=== PATIENT | female | born 1990 | race Hispanic/Latino ===

== ENCOUNTER 2018-06-18 10:21 | Inpatient (IN) | payer OTHER ==
[2018-06-18 10:51] VITALS: BMI 23.6
[2018-06-18 11:18] LABS: Amnisure Test RUPTURE DETECTED (No Rupture)
[2018-06-18 11:19] LABS: Amnisure Internal Control QC ACCEPTABLE (ACCEPTABLE)
[2018-06-18] MEDS ORDERED: Betamet Acet/Betamet Na Ph 30 MG/5 ML VIAL ONE (11:54)
[2018-06-18] MEDS: Betamet Acet/Betamet Na Ph 30 MG/5 ML VIAL IM SCH (11:59)
[2018-06-18] MEDS ORDERED: Zolpidem Tartrate 5 MG TAB PO PRN (12:34)
[2018-06-18] MEDS ORDERED: Docusate 100 MG CAP PO PRN (12:34)
[2018-06-18] MEDS ORDERED: Promethazine HCl 25 MG/ML VIAL IM PRN (12:34)
[2018-06-18] MEDS ORDERED: Ondansetron PF 4 MG/2 ML Vial IVP PRN (12:34)
--- NOTE | 2018-06-18 12:45 | PDOC.LDHP ---
Labor and Delivery H&P HPI: 27 y/o at 30 wks and 0/7 days presents for c/o loss of fluid per vagina since earlier this morning. Amniosure test (+). Bedside Ultrasound ordered. Heart Tones category 1. BMZ x1 dose given (first of 2). Latency antibiotics ordered (Zithromax/Ampicillin). Patient has SCDs ordered, bed rest, reg diet, GBS GC/Chlam cultures ordered. Current gestational age (weeks): 30 Grav: 4 Para: 2 Current complications: none Abnormal US findings: No Current medications: pre-osmani vitamins Allergies/Adverse Reactions: Allergies Allergy/AdvReac Type Severity Reaction Status Date / Time No Known Allergies Allergy Verified 06/18/18 10:50 Social history: none - Physical Exam Vital signs reviewed and normal: yes General: NAD, resting Heart: RRR Lungs: nonlabored breathing Abdomen: gravid Extremeties: no edema FHT: category 1 - Assessment L&D Assessment: premature rupture of membranes - Plan Plan: admit to L&D, other (PPROM protocol orders.)
[2018-06-18] MEDS: Lactated Ringer's 1,000 ML IV SCH ×2 (13:00→23:11)
[2018-06-18 13:54] LABS: Mean Corpuscular HGB CONC 34.1 g/dL (32.0-36.0); Mean Corpuscular Hemoglobin 30.3 pg (27.0-31.0); Mean Corpuscular Volume 88.7 fL (78.0-98.0); Mean Platelet Volume 10.6 fL (7.4-10.4); Platelet Count 134 thou/uL (130-400); RBC Distribution Width 12.5 % (11.5-14.5); White Blood Cell (WBC) Count 9.9 thou/uL (4.8-10.8)
[2018-06-18 14:34] LABS: HBSAg Index 0.27 S/CO (0-0.99); Hep B Surf Ag Non-Reactive S/CO (NonReactive)
[2018-06-18] MEDS: Ampicillin 2 GM in Sodium Chloride 0.9% 100 ML IVPB SCH ×2 (15:00→19:58)
--- NOTE | 2018-06-18 15:18 | ULT ---
OB ULTRASOUND: HISTORY: Premature rupture of membranes. FINDINGS: A single live intrauterine gestation is seen with measurements corresponding to an estimated gestatio nal age of 30 weeks 1 day and LOIS at 08/26/2018. The estimated weight measures 1510 gm or 3 carlee nds 5 ounces. measurements are as follows: BPD 7.50 cm, 30 weeks 1 day HC 27.46 cm, 30 weeks 0 days AC 25.95 cm, 30 weeks 1 day FL 5.75 cm, 30 weeks 1 day heart rate measures 122 b.p.m. Placenta is anteriorly located without evidence of placenta pre via. JEAN-CLAUDE is 13.9 cm. A 3-vessel cord, cord insertion, kidneys, bladder, stomach, 4-chamber heart, spine, lips/nose, upper and lower extremities are visualized without definite anomalies. The intracranial contents are not satisfactorily seen. IMPRESSION: 1. Single live intrauterine of 30 weeks 1 day, estimated gestational age and estimated nilson e of delivery at 08/26/2018. 2. Amniotic fluid index is 13.9 cm. POS: [facility]
[2018-06-18] MEDS: Azithromycin 500 MG in Sodium Chloride 0.9% 250 ML 250 ML IVPB SCH (16:09)
[2018-06-18 16:56] LABS: Syphilis Antibody Nonreactive (Nonreactive); Syphilis Antibody Index 0.03 S/CO (<1.00 Non-Reactive)
[2018-06-18] MEDS ORDERED: AMPicillin 2,000 MG in Syringe 0 ML SLOW IVP SCH (18:00)
[2018-06-19] MEDS: Ampicillin 2 GM in Sodium Chloride 0.9% 100 ML IVPB SCH ×4 (01:39→20:10)
[2018-06-19] MEDS: Lactated Ringer's 1,000 ML IV SCH ×3 (08:11→21:53)
[2018-06-19] MEDS: Betamet Acet/Betamet Na Ph 30 MG/5 ML VIAL IM SCH (12:01)
--- NOTE | 2018-06-19 12:56 | PDOC.LDPN ---
Labor & Delivery Progress Note - Subjective Subjective: comfortable - Objective Vital signs reviewed and normal: yes General: NAD, resting Uterine fundus: non tender FHT: category 1 AROM: clear fluid Plan: continue plan of care (We will continue 48 hours of IV antibiotics, followed by 5 more days of PO antibiotics. BMZ x 2 doses given. Magnesium Sulfate protocol for neuroprotection has been discussed, and we are currently hodling off as mother/fetus are stable and and delivery is not iminent.)
[2018-06-19] MEDS: Azithromycin 500 MG in Sodium Chloride 0.9% 250 ML 250 ML IVPB SCH (16:04)
[2018-06-20] MEDS: Ampicillin 2 GM in Sodium Chloride 0.9% 100 ML IVPB SCH ×2 (01:45→08:39)
[2018-06-20] MEDS: Lactated Ringer's 1,000 ML IV SCH ×2 (05:10→21:03)
--- NOTE | 2018-06-20 13:06 | PDOC.EVN ---
Event Note - Event Note Event Note: I was asked to evaluate Ms Ibarra for possible transfer to the floor. Pt denies abdominal pain/uterine contractions, vaginal bleeding, leaking of fluid. We reviewed her initial presentation of intermittent loss of fluid. We reviewed mode of diagosis, amnisure swab, us at time of diagnosis had jean-claude of >13cm. vital signs today normal and reviewed Physical exam. Abdomen soft NTTP : +pooling on speculum exam. visibly closed. SVE not performed BSUS: baby back down transverse, CL: 3cm no beaking or funneling, JEA-NCLAUDE >12cm. repeat amnisure test and VP3 pending. FHT 130s with mod ltv +accelerations. Isolated decelerations that do not appear to impact the following portions of the tracing. More recent attempts ot trace the baby have been less than adequate. A/P 27yo female with clear evidence of ROM ie +amnisure, +pooling. However with lie, normal fluid levels and closed long cervix pt is at lower risk for acute abruption or cord prolapse than if she had different set of circumstances. 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 I have shared this information with Dr Roman, her primary OB. I have asked that before she is transferred that a clear tracing be obtained for evaluation.
[2018-06-20 13:13] LABS: Amnisure Internal Control QC ACCEPTABLE (ACCEPTABLE); Amnisure Test RUPTURE DETECTED (No Rupture)
[2018-06-20] MEDS ORDERED: AMOXicillin 250 MG CAP PO SCH (14:00)
[2018-06-20 16:45] LABS: Chlamydia by PCR Not Detected (NotDetected); GC by PCR Not Detected (NotDetected)
[2018-06-20] MEDS: Azithromycin 250 MG TAB PO SCH (18:02)
--- NOTE | 2018-06-20 20:03 | PDOC.LDPN ---
Labor & Delivery Progress Note - Subjective Subjective: comfortable - Objective Vital signs reviewed and normal: yes General: NAD, resting Uterine fundus: tender to palpation FHT: category 1 AROM: clear fluid IUPC placed: yes FSE placed: yes Plan: continue plan of care -: 27 y/o at 30 and 2/7 weeks, s/p BMX x 2, now on ABX day 3. Doing well. Transferred to Post- floor, BPP tomorrow, NST daily. No signs of intrauterine infection, abruption, or labor.
[2018-06-20] MEDS: AMOXicillin 250 MG CAP PO SCH (21:03)
--- NOTE | 2018-06-21 10:06 | ULT ---
BIOPHYSICAL PROFILE: 06/21/2018 HISTORY: Premature rupture of membranes. COMPARISON: None. TECHNIQUE: Multiplanar lynn-scale sonographic imaging of the gravid uterus is performed for assessment of biophy sical profile. FINDINGS: A single intrauterine gestation is present, demonstrating a vertex presentation. The placenta is loc ated anteriorly, demonstrating no evidence for placenta previa or abruption. heart rate is 128 beats per minute. Amniotic fluid index is 11.7 cm. The performing beam machine operator reports a 2/2 score for tone, breathing, movements, and amniotic fluid. IMPRESSION: Normal 8/8 biophysical profile. POS: [facility]
[2018-06-21] MEDS: AMOXicillin 250 MG CAP PO SCH ×3 (11:23→21:00)
[2018-06-21] MEDS: Azithromycin 250 MG TAB PO SCH (16:22)
[2018-06-21] MEDS: Acetaminophen 500 MG TAB PO PRN (17:27)
--- NOTE | 2018-06-21 20:26 | PDOC.LDPN ---
Labor & Delivery Progress Note - Subjective Subjective: comfortable - Objective Vital signs reviewed and normal: yes General: NAD, resting Uterine fundus: non tender FHT: category 1 AROM: clear fluid Plan: continue plan of care (27 y/o at 30 and 3/7 weeks, s/p BMX x 2, now on ABX day 4. Doing well. now on Post- floor, BPP today was 8/8, NST daily. No signs of intrauterine infection, abruption, or labor.)
[2018-06-22] MEDS: AMOXicillin 250 MG CAP PO SCH ×3 (08:38→21:04)
[2018-06-22] MEDS: Acetaminophen 500 MG TAB PO PRN (09:30)
[2018-06-22] MEDS: Azithromycin 250 MG TAB PO SCH (16:26)
--- NOTE | 2018-06-22 17:36 | PDOC.LDPN ---
Labor & Delivery Progress Note - Subjective Subjective: comfortable (Continue plan of care: 27 y/o at 30 and 4/7 weeks, s/p BMZ x 2, now on ABX day 5 of 7 for latency. Doing well, now on Post- floor, BPP today was 8/8 yesterday, NST daily. No signs of intrauterine infection, abruption, or labor.) - Objective Vital signs reviewed and normal: yes General: NAD, resting Uterine fundus: non tender FHT: category 1 AROM: clear fluid Plan: continue plan of care
[2018-06-23] MEDS: AMOXicillin 250 MG CAP PO SCH ×3 (09:19→23:16)
[2018-06-23] MEDS: Azithromycin 250 MG TAB PO SCH (16:01)
--- NOTE | 2018-06-23 21:05 | PDOC.LDPN ---
Labor & Delivery Progress Note - Subjective Subjective: comfortable - Objective Vital signs reviewed and normal: yes General: NAD, resting Uterine fundus: non tender FHT: category 1 AROM: clear fluid Plan: continue plan of care -: Continue plan of care: 27 y/o at 30 and 5/7 weeks, s/p BMZ x 2, now on ABX day 6 of 7 for latency. Doing well, now on Post- floor, last BPP was 8 /8 and Vertex, NST daily. No signs of intrauterine infection, abruption, or labor.
[2018-06-24] MEDS: AMOXicillin 250 MG CAP PO SCH ×3 (09:37→22:05)
--- NOTE | 2018-06-24 12:25 | PDOC.LDPN ---
Labor & Delivery Progress Note - Subjective Subjective: comfortable - Objective Vital signs reviewed and normal: yes General: NAD, resting Uterine fundus: non tender FHT: category 1 AROM: clear fluid Plan: continue plan of care (Continue plan of care: 27 y/o at 30 and 5/ 7 weeks, s/p BMZ x 2, now on ABX day 7 of 7 for latency. Doing well, now on Post - floor, last BPP was 8/8 - next BPP for tomorrow, and Vertex, NST daily. No signs of intrauterine infection, abruption, or labor.)
[2018-06-24] MEDS: Azithromycin 250 MG TAB PO SCH (16:12)
[2018-06-24] MEDS: Lactated Ringer's 1,000 ML IV SCH (16:21)
[2018-06-25] MEDS: AMOXicillin 250 MG CAP PO SCH (09:30)
--- NOTE | 2018-06-25 10:28 | ULT ---
ULTRASOUND BIOPHYSICAL PROFILE: HISTORY: IUP at 31 weeks. Premature ruptured membranes. COMPARISON: 06/21/2018. FINDINGS: A single viable intrauterine fetus is noted in breech presentation. Anterior placenta. Amniotic flu id index 15.2 cm. heart rate 160 b.p.m. Biophysical profile score=8/8 normal. IMPRESSION: Normal biophysical profile score 8/8. Breech presentation. Anterior placenta. Normal amnioti c fluid. POS: [facility]
[2018-06-25] MEDS: Azithromycin 250 MG TAB PO SCH (15:35)
[2018-06-25] MEDS: Acetaminophen 500 MG TAB PO PRN (17:35)
--- NOTE | 2018-06-25 21:53 | PDOC.LDPN ---
Labor & Delivery Progress Note - Subjective Subjective: comfortable - Objective Vital signs reviewed and normal: yes General: NAD, resting FHT: category 1 AROM: clear fluid Plan: continue plan of care -: 11/08 BPP today. 31 wks 0 days, with PPROM x 7 days, BMZ x 2 in, ABX x 7 days
--- NOTE | 2018-06-26 19:47 | PDOC.LDPN ---
Labor & Delivery Progress Note - Subjective Subjective: comfortable - Objective Vital signs reviewed and normal: yes General: NAD, resting Uterine fundus: non tender FHT: category 1 AROM: clear fluid Plan: continue plan of care (11/08 BPP on 06/25/18. EGA of 31 wks 1 days, with PPROM x 8 days, BMZ x 2 in, ABX x 7 days completed. Stable, NST q shift. BPP twice weekly. Unstable lie.)
--- NOTE | 2018-06-27 12:53 | PDOC.LDPN ---
Labor & Delivery Progress Note - Subjective Subjective: comfortable - Objective Vital signs reviewed and normal: yes General: NAD, resting Uterine fundus: non tender FHT: category 1 AROM: clear fluid Plan: continue plan of care (continue plan of care (11/08 BPP on 06/25/18. EGA of 31 wks 1 days, with PPROM x 9 days, BMZ x 2 in, ABX x 7 days completed. Stable, NST q shift. BPP twice weekly. Unstable lie. Next BPP tomorrow.))
[2018-06-27] MEDS: Acetaminophen 500 MG TAB PO PRN (17:29)
--- NOTE | 2018-06-28 09:59 | ULT ---
BIOPHYSICAL PROFILE: Date: 06/28/18 HISTORY: premature rupture membranes FINDINGS/IMPRESSION: Tone: 2 Breathin Movement: 2 Amniotic Fluid: 2 Total Score: 8/8 Position: Vertex. Placenta: Anterior. Amniotic Fluid: Adequate. JEAN-CLAUDE recorded at 16 cm. Heart Rate: 160 beats/minute. POS: [facility]
--- NOTE | 2018-06-28 21:24 | PDOC.LDPN ---
Labor & Delivery Progress Note - Subjective Subjective: comfortable - Objective Vital signs reviewed and normal: yes General: NAD Uterine fundus: non tender FHT: category 1 AROM: clear fluid Plan: continue plan of care (continue plan of care, 11/08 BPP on 06/25/18. EGA of 31 wks and 3 days, with PPROM since 30 weeks and 0 days, BMZ x 2 in, ABX x 7 days completed. Stable, NST q shift. BPP twice weekly. Unstable lie.)
--- NOTE | 2018-06-29 15:26 | PDOC.LDPN ---
Labor & Delivery Progress Note - Subjective Subjective: comfortable - Objective Vital signs reviewed and normal: yes General: NAD, resting Uterine fundus: non tender FHT: category 1 AROM: clear fluid Plan: continue plan of care (continue plan of care: 11/08 BPP on 06/25/18. EGA of 31 wks and 4 days, with PPROM since 30 weeks and 0 days, BMZ x 2 in, ABX x 7 days completed. Stable, NST q shift. BPP twice weekly. Unstable lie, but VX on last BPP.)
--- NOTE | 2018-06-30 16:34 | PDOC.LDPN ---
Labor & Delivery Progress Note - Objective Vital signs reviewed and normal: yes General: NAD, resting Uterine fundus: non tender FHT: category 1 AROM: clear fluid Plan: continue plan of care (continue plan of care: 11/08 BPP on 06/25/18. EGA of 31 wks and 4 days, with PPROM since 30 weeks and 0 days, BMZ x 2 in, ABX x 7 days completed. Stable, NST q shift. BPP twice weekly. Unstable lie, but VX on last BPP. Delivery planned at 34 weeks.)
--- NOTE | 2018-07-01 04:35 | PDOC.OBAPN ---
FMR OB AP PN: Sub - Interval History Hospital Day: 13 Chief Complaint: LOF Indentification: 27 y/o @ 31.6 WGA here with PPROM since 30.0 WGA Interval History: Doing well, continues to leak. Denies VB, ctx. +FM FMR OB AP PN: Obj - Maternal Vital signs: BP: 109/59 HR: 75 RR: 18 Tmax: 97.9 - Heart Tones Baseline: 135 Variability: moderate Acceleration: present Deceleration: variable (single variable decel with rapid return to baseline) FMR OB AP PN: Exam - Physical Exam General: NAD, awake, alert and oriented HEENT: normocephalic and atraumatic, EOMI, MMM, conjunctiva clear, no scleral icterus, grossly normal vision, grossly normal hearing Neck: supple, no LAD Heart: RRR, normal S1/S2, no murmurs/rubs/gallops, pulses present, no edema General: CTAB, no respiratory distress, good air movement, no rales/rhonchi, no wheezing Abdomen: soft, gravid, non-tender, bowel sound present Musculoskeletal: FROM in all four extremities Neurological: cranial nerves II through XII intact, no focal deficit Skin: good tugor, capillary refill <2 seconds Lymphatic: no unusual bruising or bleeding, no purpura Psychiatric: intact recent and remote memory, good judgement and insight FMR OB AP PN: A/P - Problem List (1) premature rupture of membranes Current Visit: Yes Status: Acute Code(s): O42.919 - PRETRM ANETA ROM, UNSP TIME BETW RUPT AND ONST LABR, UNSP TRI Assessment and Plan: PPROM at 30.0 WGA, now 31.6 WGA s/p betamethasone x2 s/p 7 days of abx GBS negative BPP on 06/28/18 was 8/8 with JEAN-CLAUDE 16, vertex. -Continue qshift NST's -biweekly BPP's -Plan for delivery at 34 weeks Disposition: Continue plan of care with plan to deliver at 34 weeks. Discussion: Date/Time: 07/01/18 0435 This H&P was discussed with Dr. Ellington who agrees with the above documentation and plan. Signature: Bianca Garcia MD, PGY-2
--- NOTE | 2018-07-01 13:05 | PDOC.LDPN ---
Labor & Delivery Progress Note - Subjective Subjective: comfortable - Objective Vital signs reviewed and normal: yes General: NAD, resting, breathing through contractions, other Uterine fundus: non tender FHT: category 1 AROM: clear fluid Plan: continue plan of care (EGA of 31 wks and 6 days, with PPROM since 30 weeks and 0 days, BMZ x 2 in, ABX x 7 days completed. Stable, NST q shift. BPP twice weekly. Unstable lie, but VX on last BPP. Delivery planned at 34 weeks.)
--- NOTE | 2018-07-02 10:48 | ULT ---
BIOPHYSICAL PROFILE: DATE: 07/02/2018. COMPARISON: 06/28/2018. HISTORY: Premature rupture of membranes at 31 weeks gestation. TECHNIQUE: Multiplanar, ylnn scale sonographic imaging of the gravid uterus obtained for biophysical profile alivia parrish. FINDINGS: heart rate is 139 b.p.m. Amniotic fluid index is 12.9 cm. presentation is vertex. Plac enta located anteriorly with no evidence for previa or abruption. Dean reports a 2 out of 2 score for tone, breathing, movement, and JEAN-CLAUDE. IMPRESSION: Normal 8 out of 8 biophysical profile. POS: [facility]
--- NOTE | 2018-07-02 21:29 | PDOC.LDPN ---
Labor & Delivery Progress Note - Subjective Subjective: comfortable - Objective Vital signs reviewed and normal: yes General: NAD, resting Uterine fundus: non tender FHT: category 1 AROM: clear fluid (EGA of 32 wks and 0 days, with PPROM since 30 weeks and 0 days, BMZ x 2 in, ABX x 7 days completed. Stable, NST q shift. BPP twice weekly. Unstable lie, but VX on last BPP. Delivery planned at 34 weeks.)
[2018-07-03] MEDS: Acetaminophen 500 MG TAB PO PRN (12:08)
--- NOTE | 2018-07-03 17:15 | PDOC.LDPN ---
Labor & Delivery Progress Note - Objective Vital signs reviewed and normal: yes General: NAD, resting Uterine fundus: non tender FHT: category 1 AROM: clear fluid Plan: continue plan of care (EGA of 32 wks and 1 days, with PPROM since 30 weeks and 0 days, BMZ x 2 in, ABX x 7 days completed. Stable, NST q shift. BPP twice weekly. Unstable lie, but VX on last BPP. Delivery planned at 34 weeks.)
--- NOTE | 2018-07-04 16:52 | PDOC.LDPN ---
Labor & Delivery Progress Note - Subjective Subjective: comfortable - Objective Vital signs reviewed and normal: yes General: NAD, resting Uterine fundus: non tender FHT: category 1 AROM: clear fluid Plan: continue plan of care (EGA of 32 wks and 2 days, with PPROM since 30 weeks and 0 days, BMZ x 2 in, ABX x 7 days completed. Stable, NST q shift. BPP twice weekly. Unstable lie, but VX on last BPP. Delivery planned at 34 weeks.)
--- NOTE | 2018-07-05 11:51 | ULT ---
NONSTRESS BIOPHYSICAL PROFILE: Date: 07/05/18 COMPARISON: 07/02/18. HISTORY: Premature rupture of membranes. TECHNIQUE: Nonstress biophysical profile is performed. FINDINGS: Cephalic presentation. Suboptimal evaluation of the cervix due to shadowing. heart tones with a rate of 127 beats/minute. Amniotic fluid index is 9.8 cm. Nonstress Biophysical Profile: tone: 2 breathin movement: 2 Amniotic fluid: 2 Total score: 8/8 IMPRESSION: 1. Nonstress biophysical profile with a total score of 8/8. 2. Currently, the amniotic fluid index is 9.8 cm. 3. Suboptimal evaluation of the cervix. POS: [facility]
--- NOTE | 2018-07-06 16:46 | PDOC.LDPN ---
Labor & Delivery Progress Note - Subjective Subjective: comfortable - Objective Vital signs reviewed and normal: yes General: NAD, resting Uterine fundus: non tender FHT: category 1 AROM: clear fluid (EGA of 32 wks and 3 days, with PPROM since 30 weeks and 0 days, BMZ x 2 in, ABX x 7 days completed. Stable, NST q shift. BPP twice weekly. Unstable lie, but VX on last BPP. Delivery planned at 34 weeks)
--- NOTE | 2018-07-06 16:47 | PDOC.LDPN ---
Labor & Delivery Progress Note - Subjective Subjective: comfortable - Objective Vital signs reviewed and normal: yes General: NAD, resting Uterine fundus: non tender FHT: category 1 AROM: clear fluid Plan: continue plan of care (EGA of 32 wks and 4 days, with PPROM since 30 weeks and 0 days, BMZ x 2 in, ABX x 7 days completed. Stable, NST q shift. BPP twice weekly. Unstable lie, but VX on last BPP. Delivery planned at 34 weeks)
--- NOTE | 2018-07-07 13:05 | PDOC.LDPN ---
Labor & Delivery Progress Note - Objective Vital signs reviewed and normal: yes General: NAD, resting Uterine fundus: non tender FHT: category 1 AROM: clear fluid Plan: continue plan of care (continue plan of care (EGA of 32 wks and 5 days, with PPROM since 30 weeks and 0 days, BMZ x 2 in, ABX x 7 days completed. Stable , NST q shift. BPP twice weekly. Unstable lie, but VX on last BPP. Delivery planned at 34 weeks)
--- NOTE | 2018-07-09 11:40 | ULT ---
FFETAL ULTRASOUND, BIOPHYSICAL PROFILE CLINICAL HISTORY: Premature rupture of membranes, Evaluate viability FINDINGS: Biophysical profile score of 2 is acquired for tone, breathing, movements, and amniot ic fluid, with a total biophysical profile score of 8 achieved. JEAN-CLAUDE is measured at 16.6 cm. car diac activity is documented at 132 bpm. Exam is otherwise limited. IMPRESSION: Biophysical profile score 8/8.
--- NOTE | 2018-07-09 13:21 | PDOC.EVN ---
Event Note - Event Note Event Note: HPI 27 yo at 33.0 wks with PPROM since 30 and 0/7 weeks. BMZ course completed ABX x 7 days Completed REVIEW OF SYSTEMS: Gen: no fever, chills, or sweats Neuro: no numbness/tingling, no weakness, denies headache Eyes: no visual changes ENT: no hearing changes, no sore throat, no runny nose Resp: no cough, no SOB, no wheeze Card: denies chest pain, no palpitations GI: no N/V/D, no abdominal pain : no dysuria, no hematuria MSK: no issues noted Heme: no easy bruising/bleeding Skin: no rash, no erythema PHYSICAL EXAMINATION: General: NAD, alert and oriented x3 HEENT: PERRLA, EOMI, normal sclera, oropharynx without erythema or exudate Neck: Supple. Full ROM. Heart/Cardiovascular System: RRR, Cap refill < 3 seconds, no rub, no murmur Lungs/Respiratory System: clear to auscultation bilaterally. No increased work of breathing. Room air. Abdomen/Gastro-Intestinal System: no abdominal tenderness, normal bowel sounds, Gravid Pelvic Exam: Deferred due to PPROM Extremeties: Warm extremities. No cyanosis or edema. Neuro: No gross deficits appreciated. CN 2-12 grossly intact Psychiatry: Awake, Alert and cooperative with exam Skin/ Integumentory: No lesions, rashes, or ulcers Musculoskeletal: Full ROM A/P: Assessment: 1. 27 yo at 33 and 0/7 wks 2. PPROM 3. BMZ x2 doses completed 4. Antibiotics x 7 days completed 5. Vertex on last Ultrasound 6. Desired and Planned Plan: 1. Continue expectant management 2. Induction of labor planned at 34 weeks 3. NST q shift 4. BPP twice weekly
--- NOTE | 2018-07-09 13:23 | PDOC.EVN ---
Event Note - Event Note Event Note: HPI 27 yo at 32 and 6/7 weeks with PPROM since 30 and 0/7 weeks. BMZ course completed ABX x 7 days Completed REVIEW OF SYSTEMS: Gen: no fever, chills, or sweats Neuro: no numbness/tingling, no weakness, denies headache Eyes: no visual changes ENT: no hearing changes, no sore throat, no runny nose Resp: no cough, no SOB, no wheeze Card: denies chest pain, no palpitations GI: no N/V/D, no abdominal pain : no dysuria, no hematuria, clear vaginal DC without new odors or features MSK: no issues noted Heme: no easy bruising/bleeding Skin: no rash, no erythema PHYSICAL EXAMINATION: General: NAD, alert and oriented x3 HEENT: PERRLA, EOMI, normal sclera, oropharynx without erythema or exudate Neck: Supple. Full ROM. Heart/Cardiovascular System: RRR, Cap refill < 3 seconds, no rub, no murmur Lungs/Respiratory System: clear to auscultation bilaterally. No increased work of breathing. Room air. Abdomen/Gastro-Intestinal System: no abdominal tenderness, normal bowel sounds, Gravid Pelvic Exam: Deferred due to PPROM Extremeties: Warm extremities. No cyanosis or edema. Neuro: No gross deficits appreciated. CN 2-12 grossly intact Psychiatry: Awake, Alert and cooperative with exam Skin/ Integumentory: No lesions, rashes, or ulcers Musculoskeletal: Full ROM A/P: Assessment: 1. 27 yo at 32 and 6/7 wks 2. PPROM 3. BMZ x2 doses completed 4. Antibiotics x 7 days completed 5. Vertex on last Ultrasound 6. Desired and Planned Plan: 1. Continue expectant management 2. Induction of labor planned at 34 weeks 3. NST q shift 4. BPP twice weekly
--- NOTE | 2018-07-10 11:56 | ULT ---
OB ultrasound, Biophysical Profile CLINICAL HISTORY: Premature rupture of membranes FINDINGS: Live intrauterine gestation is present with cardiac activity documented at 135 bpm. Biophysical profile: tone 2; breathing 2; movements 2; amniotic fluid 2 Total biophysical profile score 8/8 IMPRESSION: Biophysical profile score: 8/8
--- NOTE | 2018-07-10 20:50 | PDOC.EVN ---
Event Note - Event Note Event Note: HPI 27 yo at 33 and 1/7 wks today, with PPROM since 30 and 0/7 weeks. BMZ course completed ABX x 7 days Completed REVIEW OF SYSTEMS: Gen: no fever, chills, or sweats Neuro: no numbness/tingling, no weakness, denies headache Eyes: no visual changes ENT: no hearing changes, no sore throat, no runny nose Resp: no cough, no SOB, no wheeze Card: denies chest pain, no palpitations GI: no N/V/D, no abdominal pain : no dysuria, no hematuria MSK: no issues noted Heme: no easy bruising/bleeding Skin: no rash, no erythema PHYSICAL EXAMINATION: General: NAD, alert and oriented x3 HEENT: PERRLA, EOMI, normal sclera, oropharynx without erythema or exudate Neck: Supple. Full ROM. Heart/Cardiovascular System: RRR, Cap refill < 3 seconds, no rub, no murmur Lungs/Respiratory System: clear to auscultation bilaterally. No increased work of breathing. Room air. Abdomen/Gastro-Intestinal System: no abdominal tenderness, normal bowel sounds, Gravid Pelvic Exam: Deferred due to PPROM Extremeties: Warm extremities. No cyanosis or edema. Neuro: No gross deficits appreciated. CN 2-12 grossly intact Psychiatry: Awake, Alert and cooperative with exam Skin/ Integumentory: No lesions, rashes, or ulcers Musculoskeletal: Full ROM A/P: Assessment: 1. 27 yo at 33 and 1/7 wks 2. PPROM 3. BMZ x2 doses completed 4. Antibiotics x 7 days completed 5. Vertex on last Ultrasound 6. Desired and Planned Plan: 1. Continue expectant management 2. Induction of labor planned at 34 weeks 3. NST q shift 4. BPP twice weekly
[2018-07-10] MEDS: Acetaminophen 500 MG TAB PO PRN (21:20)
--- NOTE | 2018-07-11 08:38 | ULT ---
ULTRASOUND BIOPHYSICAL PROFILE: DATE: 07/11/2018. HISTORY: A 27-year-old female with premature rupture of membranes at 32 weeks gestation. FINDINGS: breathin tone: 2 movement: 2 Amniotic fluid volume: 2 JEAN-CLAUDE 17 cm. heart rate 139 b.p.m. Presentation: Vertex. Placenta: Anterior. No placenta previa. IMPRESSION: Normal biophysical profile score of 8/8, excluding the non-stress test. jn [] POS: [facility]
--- NOTE | 2018-07-11 18:39 | PDOC.EVN ---
Event Note - Event Note Event Note: HPI 27 yo at 33 and 2/7 wks today, with PPROM since 30 and 0/7 weeks. BMZ course completed ABX x 7 days Completed REVIEW OF SYSTEMS: Gen: no fever, chills, or sweats Neuro: no numbness/tingling, no weakness, denies headache Eyes: no visual changes ENT: no hearing changes, no sore throat, no runny nose Resp: no cough, no SOB, no wheeze Card: denies chest pain, no palpitations GI: no N/V/D, no abdominal pain : no dysuria, no hematuria MSK: no issues noted Heme: no easy bruising/bleeding Skin: no rash, no erythema PHYSICAL EXAMINATION: General: NAD, alert and oriented x3 HEENT: PERRLA, EOMI, normal sclera, oropharynx without erythema or exudate Neck: Supple. Full ROM. Heart/Cardiovascular System: RRR, Cap refill < 3 seconds, no rub, no murmur Lungs/Respiratory System: clear to auscultation bilaterally. No increased work of breathing. Room air. Abdomen/Gastro-Intestinal System: no abdominal tenderness, normal bowel sounds, Gravid Pelvic Exam: Deferred due to PPROM Extremeties: Warm extremities. No cyanosis or edema. Neuro: No gross deficits appreciated. CN 2-12 grossly intact Psychiatry: Awake, Alert and cooperative with exam Skin/ Integumentory: No lesions, rashes, or ulcers Musculoskeletal: Full ROM A/P: Assessment: 1. 27 yo at 33 and 2/7 wks 2. PPROM 3. BMZ x2 doses completed 4. Antibiotics x 7 days completed 5. Vertex on last Ultrasound 6. Desired and Planned 7. Latest NST was read and is reactive, without notable decelerations,and overall, reassuring for normal acid/base status of the fetus, despite PPROM. Plan: 1. Continue expectant management 2. Induction of labor planned at 34 weeks 3. NST q shift 4. BPP twice weekly
--- NOTE | 2018-07-12 12:26 | PDOC.EVN ---
Event Note - Event Note Event Note: HPI 27 yo at 33 and 3/7 wks today, with PPROM since 30 and 0/7 weeks. BMZ course completed ABX x 7 days Completed REVIEW OF SYSTEMS: Gen: no fever, chills, or sweats Neuro: no numbness/tingling, no weakness, denies headache Eyes: no visual changes ENT: no hearing changes, no sore throat, no runny nose Resp: no cough, no SOB, no wheeze Card: denies chest pain, no palpitations GI: no N/V/D, no abdominal pain : no dysuria, no hematuria MSK: no issues noted Heme: no easy bruising/bleeding Skin: no rash, no erythema PHYSICAL EXAMINATION: General: NAD, alert and oriented x3 HEENT: PERRLA, EOMI, normal sclera, oropharynx without erythema or exudate Neck: Supple. Full ROM. Heart/Cardiovascular System: RRR, Cap refill < 3 seconds, no rub, no murmur Lungs/Respiratory System: clear to auscultation bilaterally. No increased work of breathing. Room air. Abdomen/Gastro-Intestinal System: no abdominal tenderness, normal bowel sounds, Gravid Pelvic Exam: Deferred due to PPROM Extremeties: Warm extremities. No cyanosis or edema. Neuro: No gross deficits appreciated. CN 2-12 grossly intact Psychiatry: Awake, Alert and cooperative with exam Skin/ Integumentory: No lesions, rashes, or ulcers Musculoskeletal: Full ROM A/P: Assessment: 1. 27 yo at 33 and 3/7 wks 2. PPROM 3. BMZ x2 doses completed 4. Antibiotics x 7 days completed 5. Vertex on last Ultrasound 6. Desired and Planned 7. Latest NST was read and is reactive, without notable decelerations,and overall, reassuring for normal acid/base status of the fetus, despite PPROM. Plan: 1. Continue expectant management 2. Induction of labor planned at 34 weeks 3. NST q shift 4. BPP twice weekly
--- NOTE | 2018-07-12 14:54 | ULT ---
US Biophysical Profile: 07/12/2018 12:26 PM CLINICAL HISTORY: Premature rupture of the membranes at 33 weeks. COMPARISON: None. FINDINGS: heart rate: 143 bpm. JEAN-CLAUDE: 13.0 cm Biophysical profile: 8 of 8 IMPRESSION: Normal biophysical profile
--- NOTE | 2018-07-13 17:37 | PDOC.EVN ---
Event Note - Event Note Event Note: HPI 27 yo at 33 and 4/7 wks today, with PPROM since 30 and 0/7 weeks. BMZ course completed ABX x 7 days Completed REVIEW OF SYSTEMS: Gen: no fever, chills, or sweats Neuro: no numbness/tingling, no weakness, denies headache Eyes: no visual changes ENT: no hearing changes, no sore throat, no runny nose Resp: no cough, no SOB, no wheeze Card: denies chest pain, no palpitations GI: no N/V/D, no abdominal pain : no dysuria, no hematuria MSK: no issues noted Heme: no easy bruising/bleeding Skin: no rash, no erythema PHYSICAL EXAMINATION: General: NAD, alert and oriented x3 HEENT: PERRLA, EOMI, normal sclera, oropharynx without erythema or exudate Neck: Supple. Full ROM. Heart/Cardiovascular System: RRR, Cap refill < 3 seconds, no rub, no murmur Lungs/Respiratory System: clear to auscultation bilaterally. No increased work of breathing. Room air. Abdomen/Gastro-Intestinal System: no abdominal tenderness, normal bowel sounds, Gravid Pelvic Exam: Deferred due to PPROM Extremeties: Warm extremities. No cyanosis or edema. Neuro: No gross deficits appreciated. CN 2-12 grossly intact Psychiatry: Awake, Alert and cooperative with exam Skin/ Integumentory: No lesions, rashes, or ulcers Musculoskeletal: Full ROM A/P: Assessment: 1. 27 yo at 33 and 4/7 wks 2. PPROM 3. BMZ x2 doses completed 4. Antibiotics x 7 days completed 5. Vertex on last Ultrasound 6. Desired and Planned 7. Latest NST was read and is reactive, without notable decelerations,and overall, reassuring for normal acid/base status of the fetus, despite PPROM. Plan: 1. Continue expectant management 2. Induction of labor planned at 34 weeks 3. NST q shift 4. BPP twice weekly
--- NOTE | 2018-07-14 15:40 | PDOC.EVN ---
Event Note - Event Note Event Note: HPI 27 yo at 33 and 5/7 wks today, with PPROM since 30 and 0/7 weeks. BMZ course completed ABX x 7 days Completed REVIEW OF SYSTEMS: Gen: no fever, chills, or sweats Neuro: no numbness/tingling, no weakness, denies headache Eyes: no visual changes ENT: no hearing changes, no sore throat, no runny nose Resp: no cough, no SOB, no wheeze Card: denies chest pain, no palpitations GI: no N/V/D, no abdominal pain : no dysuria, no hematuria MSK: no issues noted Heme: no easy bruising/bleeding Skin: no rash, no erythema PHYSICAL EXAMINATION: General: NAD, alert and oriented x3 HEENT: PERRLA, EOMI, normal sclera, oropharynx without erythema or exudate Neck: Supple. Full ROM. Heart/Cardiovascular System: RRR, Cap refill < 3 seconds, no rub, no murmur Lungs/Respiratory System: clear to auscultation bilaterally. No increased work of breathing. Room air. Abdomen/Gastro-Intestinal System: no abdominal tenderness, normal bowel sounds, Gravid Pelvic Exam: Deferred due to PPROM Extremeties: Warm extremities. No cyanosis or edema. Neuro: No gross deficits appreciated. CN 2-12 grossly intact Psychiatry: Awake, Alert and cooperative with exam Skin/ Integumentory: No lesions, rashes, or ulcers Musculoskeletal: Full ROM A/P: Assessment: 1. 27 yo at 33 and 5/7 wks 2. PPROM 3. BMZ x2 doses completed 4. Antibiotics x 7 days completed 5. Vertex on last Ultrasound 6. Desired and Planned 7. Latest NST was read and is reactive, without notable decelerations,and overall, reassuring for normal acid/base status of the fetus, despite PPROM. Plan: 1. Continue expectant management 2. Induction of labor planned at 34 weeks 3. NST q shift 4. BPP twice weekly
--- NOTE | 2018-07-15 12:18 | PDOC.EVN ---
Event Note - Event Note Event Note: HPI 27 yo at 33 and 6/7 wks today, with PPROM since 30 and 0/7 weeks. BMZ course completed ABX x 7 days Completed REVIEW OF SYSTEMS: Gen: no fever, chills, or sweats Neuro: no numbness/tingling, no weakness, denies headache Eyes: no visual changes ENT: no hearing changes, no sore throat, no runny nose Resp: no cough, no SOB, no wheeze Card: denies chest pain, no palpitations GI: no N/V/D, no abdominal pain : no dysuria, no hematuria MSK: no issues noted Heme: no easy bruising/bleeding Skin: no rash, no erythema PHYSICAL EXAMINATION: General: NAD, alert and oriented x3 HEENT: PERRLA, EOMI, normal sclera, oropharynx without erythema or exudate Neck: Supple. Full ROM. Heart/Cardiovascular System: RRR, Cap refill < 3 seconds, no rub, no murmur Lungs/Respiratory System: clear to auscultation bilaterally. No increased work of breathing. Room air. Abdomen/Gastro-Intestinal System: no abdominal tenderness, normal bowel sounds, Gravid Pelvic Exam: Deferred due to PPROM Extremeties: Warm extremities. No cyanosis or edema. Neuro: No gross deficits appreciated. CN 2-12 grossly intact Psychiatry: Awake, Alert and cooperative with exam Skin/ Integumentory: No lesions, rashes, or ulcers Musculoskeletal: Full ROM A/P: Assessment: 1. 27 y/o at 33 and 6/7 wks 2. PPROM 3. BMZ x2 doses completed 4. Antibiotics x 7 days completed 5. Vertex on last Ultrasound 6. Desired and Planned 7. Latest NST was read and is reactive, without notable decelerations,and overall, reassuring for normal acid/base status of the fetus, despite PPROM. Plan: 1. Continue expectant management 2. Induction of labor planned at 34 weeks or when NICU bed becomes available. May have to discuss transfer if bed availability continues to be an issue. 3. NST q shift 4. BPP twice weekly
--- NOTE | 2018-07-16 15:37 | ULT ---
BIOPHYSICAL PROFILE: Date: 07/16/18 INDICATION: Premature rupture of membranes. FINDINGS/IMPRESSION: Tone: 2 Breathin Movement: 2 Amniotic Fluid: 2 Total Score: 8/8 Position: Vertex. Placenta: Anterior. Heart Rate: 141 bpm. POS: [facility]
--- NOTE | 2018-07-16 20:08 | PDOC.EVN ---
Event Note - Event Note Event Note: HPI 27 yo at 34 and 0/7 wks today, with PPROM since 30 and 0/7 weeks. BMZ course completed ABX x 7 days Completed REVIEW OF SYSTEMS: Gen: no fever, chills, or sweats Neuro: no numbness/tingling, no weakness, denies headache Eyes: no visual changes ENT: no hearing changes, no sore throat, no runny nose Resp: no cough, no SOB, no wheeze Card: denies chest pain, no palpitations GI: no N/V/D, no abdominal pain : no dysuria, no hematuria MSK: no issues noted Heme: no easy bruising/bleeding Skin: no rash, no erythema PHYSICAL EXAMINATION: General: NAD, alert and oriented x3 HEENT: PERRLA, EOMI, normal sclera, oropharynx without erythema or exudate Neck: Supple. Full ROM. Heart/Cardiovascular System: RRR, Cap refill < 3 seconds, no rub, no murmur Lungs/Respiratory System: clear to auscultation bilaterally. No increased work of breathing. Room air. Abdomen/Gastro-Intestinal System: no abdominal tenderness, normal bowel sounds, Gravid Pelvic Exam: Deferred due to PPROM Extremeties: Warm extremities. No cyanosis or edema. Neuro: No gross deficits appreciated. CN 2-12 grossly intact Psychiatry: Awake, Alert and cooperative with exam Skin/ Integumentory: No lesions, rashes, or ulcers Musculoskeletal: Full ROM A/P: Assessment: 1. 27 y/o at 34 and 0/7 wks 2. PPROM 3. BMZ x2 doses completed 4. Antibiotics x 7 days completed 5. Vertex on last Ultrasound 6. Desired and Planned 7. Latest NST was read and is reactive, without notable decelerations,and overall, reassuring for normal acid/base status of the fetus, despite PPROM. Plan: 1. Given ACOG guidelines for delivery of PPROM pregnancies, delivery after 34 completed week is recommended, and induction of labor is certainly planned when first opportunity for a NICU bed at this facility becomes available. This case was discussed with Dr. Bright (Neonatology/NICU) 10 minutes ago by phone. Transfer to another hospital has been extensively reviewed and discussed with patient, NICU MD Staff, operations and maintenance technican/Administration, and nursing staff. If bed availability continues to be an issue later in the week/ by next week - transfer may become our only reasonable option, but the fetus is currently stable, with 10/10 BPP today, excellent movement, and no evidence of infection. The patient has expressed a STRONG desire to remain in [facility] for delivery, and would prefer to deliver at this facility rather than transfer anywhere else, including [facility] in [place]. 3. NST q shift 4. BPP twice weekly
--- NOTE | 2018-07-17 21:25 | PDOC.EVN ---
Event Note - Event Note Event Note: HPI 27 yo at 34 and 1/7 wks today, with PPROM since 30 and 0/7 weeks. BMZ course completed ABX x 7 days Completed REVIEW OF SYSTEMS: Gen: no fever, chills, or sweats Neuro: no numbness/tingling, no weakness, denies headache Eyes: no visual changes ENT: no hearing changes, no sore throat, no runny nose Resp: no cough, no SOB, no wheeze Card: denies chest pain, no palpitations GI: no N/V/D, no abdominal pain : no dysuria, no hematuria MSK: no issues noted Heme: no easy bruising/bleeding Skin: no rash, no erythema PHYSICAL EXAMINATION: General: NAD, alert and oriented x3 HEENT: PERRLA, EOMI, normal sclera, oropharynx without erythema or exudate Neck: Supple. Full ROM. Heart/Cardiovascular System: RRR, Cap refill < 3 seconds, no rub, no murmur Lungs/Respiratory System: clear to auscultation bilaterally. No increased work of breathing. Room air. Abdomen/Gastro-Intestinal System: no abdominal tenderness, normal bowel sounds, Gravid Pelvic Exam: Deferred due to PPROM Extremeties: Warm extremities. No cyanosis or edema. Neuro: No gross deficits appreciated. CN 2-12 grossly intact Psychiatry: Awake, Alert and cooperative with exam Skin/ Integumentory: No lesions, rashes, or ulcers Musculoskeletal: Full ROM A/P: Assessment: 1. 27 y/o at 34 and 1/7 wks 2. PPROM 3. BMZ x2 doses completed 4. Antibiotics x 7 days completed 5. Vertex on last Ultrasound 6. Desired and Planned 7. Latest NST was read and is reactive, without notable decelerations,and overall, reassuring for normal acid/base status of the fetus, despite PPROM. Plan: 1. Given ACOG guidelines for delivery of PPROM pregnancies, delivery after 34 completed week is recommended, and induction of labor is planned when first opportunity for a NICU bed at this facility becomes available. This case was discussed with Dr. Bright (Neonatology/NICU), the patient, NICU steam table associate/Administration, and nursing staff. If bed availability continues to be an issue later in the week/by next week - transfer may become our only reasonable option, but the fetus is currently stable, with last BPP of 01/10, excellent movement, and no evidence of infection. The patient has expressed a STRONG desire to remain in [facility] for delivery, and would prefer to deliver at this facility rather than transfer anywhere else , including [facility] in [place]. 3. NST q shift 4. BPP twice weekly
--- NOTE | 2018-07-18 19:36 | PDOC.EVN ---
Event Note - Event Note Event Note: HPI 27 yo at 34 and 2/7 wks today, with PPROM since 30 and 0/7 weeks. BMZ course completed ABX x 7 days Completed REVIEW OF SYSTEMS: Gen: no fever, chills, or sweats Neuro: no numbness/tingling, no weakness, denies headache Eyes: no visual changes ENT: no hearing changes, no sore throat, no runny nose Resp: no cough, no SOB, no wheeze Card: denies chest pain, no palpitations GI: no N/V/D, no abdominal pain : no dysuria, no hematuria MSK: no issues noted Heme: no easy bruising/bleeding Skin: no rash, no erythema PHYSICAL EXAMINATION: General: NAD, alert and oriented x3 HEENT: PERRLA, EOMI, normal sclera, oropharynx without erythema or exudate Neck: Supple. Full ROM. Heart/Cardiovascular System: RRR, Cap refill < 3 seconds, no rub, no murmur Lungs/Respiratory System: clear to auscultation bilaterally. No increased work of breathing. Room air. Abdomen/Gastro-Intestinal System: no abdominal tenderness, normal bowel sounds, Gravid Pelvic Exam: Deferred due to PPROM Extremeties: Warm extremities. No cyanosis or edema. Neuro: No gross deficits appreciated. CN 2-12 grossly intact Psychiatry: Awake, Alert and cooperative with exam Skin/ Integumentory: No lesions, rashes, or ulcers Musculoskeletal: Full ROM A/P: Assessment: 1. 27 y/o at 34 and 2/7 wks 2. PPROM 3. BMZ x2 doses completed 4. Antibiotics x 7 days completed 5. Vertex on last Ultrasound 6. Desired and Planned 7. Latest NST was read and is reactive, without notable decelerations,and overall, reassuring for normal acid/base status of the fetus, despite PPROM. Plan: 1. Given ACOG guidelines for delivery of PPROM pregnancies, delivery after 34 completed week is recommended, and induction of labor is planned when first opportunity for a NICU bed at this facility becomes available. This case was discussed with both Neonatology physicians this week, the patient and family, NICU paving stone installer/Administration, and nursing staff. Bed availability in NICU is anticipated in the next 48 hours. The fetus is currently stable, with last BPP of 10/10, excellent movement, and no evidence of infection. The patient has expressed a STRONG desire to remain in [facility] area for delivery, and would prefer to deliver at this facility rather than transfer anywhere else, including [facility] in [place]. 3. NST q shift 4. BPP twice weekly
--- NOTE | 2018-07-19 16:42 | ULT ---
LIMITED OBSTETRICAL ULTRASOUND FOR BIOPHYSICAL PROFILE: Date: 07/19/18 COMPARISON: Prior exam dated 07/16/18. INDICATION: Premature rupture of membranes. FINDINGS: There is a single, live intrauterine gestation in vertex presentation. Cardiac activity is noted at 1 41 beats/minute. The placenta is anterior in location without overt evidence of previa. The fetus 2/2 for tone, 2/2 for breathing, 2/2 for movement, and 2/2 for amniotic fluid level. T he JEAN-CLAUDE measured 11.5 cm. IMPRESSION: Biophysical profile is 8/8. POS: [facility]
--- NOTE | 2018-07-19 20:51 | PDOC.EVN ---
Event Note - Event Note Event Note: HPI 27 yo at 34 and 3/7 wks today, with PPROM since 30 and 0/7 weeks. BMZ course completed ABX x 7 days Completed REVIEW OF SYSTEMS: Gen: no fever, chills, or sweats Neuro: no numbness/tingling, no weakness, denies headache Eyes: no visual changes ENT: no hearing changes, no sore throat, no runny nose Resp: no cough, no SOB, no wheeze Card: denies chest pain, no palpitations GI: no N/V/D, no abdominal pain : no dysuria, no hematuria MSK: no issues noted Heme: no easy bruising/bleeding Skin: no rash, no erythema PHYSICAL EXAMINATION: General: NAD, alert and oriented x3 HEENT: PERRLA, EOMI, normal sclera, oropharynx without erythema or exudate Neck: Supple. Full ROM. Heart/Cardiovascular System: RRR, Cap refill < 3 seconds, no rub, no murmur Lungs/Respiratory System: clear to auscultation bilaterally. No increased work of breathing. Room air. Abdomen/Gastro-Intestinal System: no abdominal tenderness, normal bowel sounds, Gravid Pelvic Exam: Deferred due to PPROM Extremeties: Warm extremities. No cyanosis or edema. Neuro: No gross deficits appreciated. CN 2-12 grossly intact Psychiatry: Awake, Alert and cooperative with exam Skin/ Integumentory: No lesions, rashes, or ulcers Musculoskeletal: Full ROM A/P: Assessment: 1. 27 y/o at 34 and 3/7 wks 2. PPROM 3. BMZ x2 doses completed 4. Antibiotics x 7 days completed 5. Vertex on last Ultrasound 6. Desired and Planned 7. Latest NST was read and is reactive, without notable decelerations,and overall, reassuring for normal acid/base status of the fetus, despite PPROM. Plan: 1. Given ACOG guidelines for delivery of PPROM pregnancies, delivery after 34 completed week is recommended, and induction of labor is planned when first opportunity for a NICU bed at this facility becomes available. This case was discussed this week with both Director Dr. Pavan M.D., Neonatology physicians, the patient and family, irrigator overhead, and nursing staff. Bed availability in NICU is anticipated by the end of the weekend, but is assigned on a first-come/first serve basis based on need. The fetus is currently stable, with last BPP of 01/10, excellent movement, and no evidence of infection. The patient has expressed a STRONG desire to remain in [facility] area for delivery, and would prefer to deliver at this facility rather than transfer anywhere else, including [facility] in [place]. 3. Continue NST q shift 4. Continue BPP twice weekly
--- NOTE | 2018-07-20 17:28 | PDOC.EVN ---
Event Note - Event Note Event Note: 27 yo at 34 and 4/7 wks today, with PPROM since 30 and 0/7 weeks. BMZ course completed ABX x 7 days Completed REVIEW OF SYSTEMS: Gen: no fever, chills, or sweats Neuro: no numbness/tingling, no weakness, denies headache Eyes: no visual changes ENT: no hearing changes, no sore throat, no runny nose Resp: no cough, no SOB, no wheeze Card: denies chest pain, no palpitations GI: no N/V/D, no abdominal pain : no dysuria, no hematuria MSK: no issues noted Heme: no easy bruising/bleeding Skin: no rash, no erythema PHYSICAL EXAMINATION: General: NAD, alert and oriented x3 HEENT: PERRLA, EOMI, normal sclera, oropharynx without erythema or exudate Neck: Supple. Full ROM. Heart/Cardiovascular System: RRR, Cap refill < 3 seconds, no rub, no murmur Lungs/Respiratory System: clear to auscultation bilaterally. No increased work of breathing. Room air. Abdomen/Gastro-Intestinal System: no abdominal tenderness, normal bowel sounds, Gravid Pelvic Exam: Deferred due to PPROM Extremities: Warm extremities. No cyanosis or edema. Neuro: No gross deficits appreciated. CN 2-12 grossly intact Psychiatry: Awake, Alert and cooperative with exam Skin/ Integumentary: No lesions, rashes, or ulcers Musculoskeletal: Full ROM A/P: Assessment: 1. 27 y/o at 34 and 4/7 wks 2. PPROM 3. BMZ x2 doses completed 4. Antibiotics x 7 days completed 5. Vertex on last Ultrasound 6. Desired and Planned 7. Latest NST was read and is reactive, without notable decelerations,and overall, reassuring for normal acid/base status of the fetus, despite PPROM. Plan: 1. Given ACOG guidelines for delivery of PPROM pregnancies, delivery after 34 completed week is recommended, and induction of labor is planned when first opportunity for a NICU bed at this facility becomes available. This case was discussed this week with both Director Dr. Pavan M.D., Neonatology physicians, the patient and family, pharmaceutical plant operator, and nursing staff. Bed availability in NICU is anticipated by the end of the weekend, but is assigned on a first-come/first serve basis based on need. The fetus is currently stable, with last BPP of 01/10, excellent movement, and no evidence of infection. The patient has expressed a STRONG desire to remain in [facility] area for delivery, and would prefer to deliver at this facility rather than transfer anywhere else, including [facility] in [place]. 2. Continue NST q shift 3. Continue BPP twice weekly
--- NOTE | 2018-07-21 21:31 | PDOC.EVN ---
Event Note - Event Note Event Note: Event Note: 27 yo at 34 and 5/7 wks today, with PPROM since 30 and 0/7 weeks. BMZ course completed ABX x 7 days Completed REVIEW OF SYSTEMS: Gen: no fever, chills, or sweats Neuro: no numbness/tingling, no weakness, denies headache Eyes: no visual changes ENT: no hearing changes, no sore throat, no runny nose Resp: no cough, no SOB, no wheeze Card: denies chest pain, no palpitations GI: no N/V/D, no abdominal pain : no dysuria, no hematuria MSK: no issues noted Heme: no easy bruising/bleeding Skin: no rash, no erythema PHYSICAL EXAMINATION: General: NAD, alert and oriented x3 HEENT: PERRLA, EOMI, normal sclera, oropharynx without erythema or exudate Neck: Supple. Full ROM. Heart/Cardiovascular System: RRR, Cap refill < 3 seconds, no rub, no murmur Lungs/Respiratory System: clear to auscultation bilaterally. No increased work of breathing. Room air. Abdomen/Gastro-Intestinal System: no abdominal tenderness, normal bowel sounds, Gravid Pelvic Exam: Deferred due to PPROM Extremities: Warm extremities. No cyanosis or edema. Neuro: No gross deficits appreciated. CN 2-12 grossly intact Psychiatry: Awake, Alert and cooperative with exam Skin/ Integumentary: No lesions, rashes, or ulcers Musculoskeletal: Full ROM A/P: Assessment: 1. 27 y/o at 34 and 5/7 wks 2. PPROM 3. BMZ x2 doses completed 4. Antibiotics x 7 days completed 5. Vertex on last Ultrasound 6. Desired and Planned 7. Latest NST was read and is reactive, without notable decelerations,and overall, reassuring for normal acid/base status of the fetus, despite PPROM. Plan: 1. Given ACOG guidelines for delivery of PPROM pregnancies, delivery after 34 completed week is recommended, and induction of labor is planned when first opportunity for a NICU bed at this facility becomes available. This case was discussed this week with both Director Dr. Pavan M.D., Neonatology physicians, the patient and family, bobbin drier, and nursing staff. Bed availability in NICU is anticipated by first part of the week, but is assigned on a first-come/first serve basis based on need. The fetus is currently stable, with last BPP of 01/10, excellent movement, and no evidence of infection. The patient has expressed a STRONG desire to remain in [facility] area for delivery, and would prefer to deliver at this facility rather than transfer anywhere else, including [facility] in [place] ([facility] I was informed those beds are full currently). 2. Continue NST q shift 3. Continue BPP twice weekly
--- NOTE | 2018-07-22 12:32 | PDOC.EVN ---
Event Note - Event Note Event Note: 27 yo at 34 and 6/7 wks today, with PPROM since 30 and 0/7 weeks. BMZ course completed ABX x 7 days Completed REVIEW OF SYSTEMS: Gen: no fever, chills, or sweats Neuro: no numbness/tingling, no weakness, denies headache Eyes: no visual changes ENT: no hearing changes, no sore throat, no runny nose Resp: no cough, no SOB, no wheeze Card: denies chest pain, no palpitations GI: no N/V/D, no abdominal pain : no dysuria, no hematuria MSK: no issues noted Heme: no easy bruising/bleeding Skin: no rash, no erythema PHYSICAL EXAMINATION: General: NAD, alert and oriented x3 HEENT: PERRLA, EOMI, normal sclera, oropharynx without erythema or exudate Neck: Supple. Full ROM. Heart/Cardiovascular System: RRR, Cap refill < 3 seconds, no rub, no murmur Lungs/Respiratory System: clear to auscultation bilaterally. No increased work of breathing. Room air. Abdomen/Gastro-Intestinal System: no abdominal tenderness, normal bowel sounds, Gravid Pelvic Exam: Deferred due to PPROM Extremities: Warm extremities. No cyanosis or edema. Neuro: No gross deficits appreciated. CN 2-12 grossly intact Psychiatry: Awake, Alert and cooperative with exam Skin/ Integumentary: No lesions, rashes, or ulcers Musculoskeletal: Full ROM A/P: Assessment: 1. 27 y/o at 34 and 6/7 wks 2. PPROM 3. BMZ x2 doses completed 4. Antibiotics x 7 days completed 5. Vertex on last Ultrasound 6. Desired and Planned 7. Latest NST was read and is reactive, without notable decelerations,and overall, reassuring for normal acid/base status of the fetus, despite PPROM. Plan: 1. Given ACOG guidelines for delivery of PPROM pregnancies, delivery after 34 completed week is recommended, and induction of labor is planned when first opportunity for a NICU bed at this facility becomes available. This case was discussed this week with both Director Dr. Pavan M.D., Neonatology physicians, the patient and family, cup trimming machine operator, and nursing staff. Bed availability in NICU is anticipated by first part of the week, but is assigned on a first-come/first serve basis based on need. The fetus is currently stable, with last BPP of 01/10, excellent movement, and no evidence of infection. The patient has expressed a STRONG desire to remain in [facility] area for delivery, and would prefer to deliver at this facility rather than transfer anywhere else, including [facility] in [place] ([facility] I was informed those beds are full currently). 2. Continue NST q shift 3. Continue BPP twice weekly
--- NOTE | 2018-07-23 10:00 | ULT ---
Obstetric sonogram limited Sonographic biophysical profile exam HISTORY: Premature rupture of membranes. Follow-up. COMPARISON: 07/19/2018. FINDINGS: Single intrauterine gestation in cephalic presentation. Placenta is anterior. No evidence o f placenta previa. Cervix not well visualized. Vertical pockets of amniotic fluid are measured at 5.2 cm and 3.8 cm. Amniotic fluid index 13.2. Good tone, breathing movements, and gross movements were demonstrated. IMPRESSION: Sonographic biophysical profile score is 8/8.
[2018-07-23] MEDS ORDERED: Butorphanol Tartrate 1 MG/ML VIAL SLOW IVP PRN (17:35)
[2018-07-23] MEDS ORDERED: Lidocaine 1% (PF) 30 ML VIAL SC PRN (17:35)
[2018-07-23] MEDS ORDERED: NS / Oxytocin 40 units/1000ml 1,000 ML IV PRN (17:35)
[2018-07-23] MEDS ORDERED: Carboprost 250 MCG/ML AMP IM PRN (17:35)
[2018-07-23] MEDS ORDERED: Docusate 100 MG CAP PO PRN (17:35)
[2018-07-23] MEDS ORDERED: Penicillin G Potassium 5 MILL.UNITS in Sodium Chloride 0.9% 100 ML IVPB SCH (17:35)
[2018-07-23] MEDS ORDERED: Methylergonovine 0.2 MG/ML VIAL IM PRN (17:35)
[2018-07-23] MEDS ORDERED: Promethazine HCl 25 MG/ML VIAL IM PRN (17:35)
[2018-07-23] MEDS ORDERED: NS w/ Oxytocin 10 units 500 ML IV SCH (17:35)
[2018-07-23] MEDS ORDERED: Ibuprofen 800 MG TAB PO PRN (17:35)
[2018-07-23] MEDS ORDERED: Diphenoxylate HCl/Atropine Tablet PO PRN ×2 (17:35)
[2018-07-23] MEDS ORDERED: Ondansetron PF 4 MG/2 ML Vial IVP PRN (17:35)
[2018-07-23] MEDS ORDERED: HYDROcodone/Acetaminophen 5/325 mg Tablet PO PRN ×2 (17:35)
[2018-07-23] MEDS ORDERED: Misoprostol 200 MCG TAB PR PRN (17:35)
[2018-07-23] MEDS ORDERED: Fentanyl 4 mcg/Bup 0.1% Cadd 100 ML ONE (17:52)
[2018-07-23 17:59] LABS: Hemoglobin 13.1 g/dL (12.0-16.0); Mean Corpuscular HGB CONC 34.9 g/dL (32.0-36.0); Mean Corpuscular Hemoglobin 30.1 pg (27.0-31.0); Mean Corpuscular Volume 86.1 fL (78.0-98.0); Platelet Count 150 thou/uL (130-400); Red Blood Cell (RBC) Count 4.35 mill/uL (4.20-5.40); White Blood Cell (WBC) Count 10.1 thou/uL (4.8-10.8)
[2018-07-23] MEDS: Lactated Ringer's 1,000 ML IV SCH ×3 (18:19→23:50)
[2018-07-23 18:38] LABS: HBSAg Index 0.34 S/CO (0-0.99); Hep B Surf Ag Non-Reactive S/CO (NonReactive)
[2018-07-23 18:39] LABS: Syphilis Antibody Nonreactive (Nonreactive); Syphilis Antibody Index 0.03 S/CO (<1.00 Non-Reactive)
[2018-07-23] MEDS: Penicillin G 2.5 MILL.units 2.5 MILL.UNITS in Premix Bag 1 BAG IVPB SCH (21:32)
[2018-07-24] MEDS ORDERED: Lidocaine 1% (PF) 30 ML VIAL ONE (00:48)
--- NOTE | 2018-07-24 01:13 | PDOC.EVN ---
Event Note - Event Note Event Note: 27 yo at 35 and 0/7 wks today, with PPROM since 30 and 0/7 weeks. BMZ course completed ABX x 7 days Completed REVIEW OF SYSTEMS: Gen: no fever, chills, or sweats Neuro: no numbness/tingling, no weakness, denies headache Eyes: no visual changes ENT: no hearing changes, no sore throat, no runny nose Resp: no cough, no SOB, no wheeze Card: denies chest pain, no palpitations GI: no N/V/D, no abdominal pain : no dysuria, no hematuria MSK: no issues noted Heme: no easy bruising/bleeding Skin: no rash, no erythema PHYSICAL EXAMINATION: General: NAD, alert and oriented x3 HEENT: PERRLA, EOMI, normal sclera, oropharynx without erythema or exudate Neck: Supple. Full ROM. Heart/Cardiovascular System: RRR, Cap refill < 3 seconds, no rub, no murmur Lungs/Respiratory System: clear to auscultation bilaterally. No increased work of breathing. Room air. Abdomen/Gastro-Intestinal System: no abdominal tenderness, normal bowel sounds, Gravid Pelvic Exam: Deferred due to PPROM Extremities: Warm extremities. No cyanosis or edema. Neuro: No gross deficits appreciated. CN 2-12 grossly intact Psychiatry: Awake, Alert and cooperative with exam Skin/ Integumentary: No lesions, rashes, or ulcers Musculoskeletal: Full ROM A/P: Assessment: 1. 27 y/o at 35 and 0/7 wks 2. PPROM 3. BMZ x2 doses completed 4. Antibiotics x 7 days completed 5. Vertex on last Ultrasound 6. Desired and Planned 7. Latest NST was read and is reactive, without notable decelerations,and overall, reassuring for normal acid/base status of the fetus, despite PPROM. Plan: 1. Induction of labor today. 2. NICU bed is reserved and available today. 3. See orders.
[2018-07-24] MEDS ORDERED: HYDROcodone/Acetaminophen 5/325 mg Tablet PO PRN ×2 (04:00)
[2018-07-24] MEDS ORDERED: Lanolin Ointment 7 GM TUBE TOP PRN (04:00)
[2018-07-24] MEDS ORDERED: Ondansetron PF 4 MG/2 ML Vial IVP PRN (04:00)
[2018-07-24] MEDS ORDERED: Milk Of Magnesia 30 ML UDCUP PO PRN (04:00)
[2018-07-24] MEDS ORDERED: Adacel (T-DAP) 0.5 ML SYRINGE IM SCH (04:00)
[2018-07-24] MEDS ORDERED: Benzocaine-Menthol 82.5 ML CAN TOP PRN (04:00)
[2018-07-24] MEDS ORDERED: Sodium Chloride 0.9% 1,000 ML IV SCH (04:00)
[2018-07-24] MEDS ORDERED: Bisacodyl 10 MG SUPP PR PRN (04:00)
[2018-07-24] MEDS ORDERED: NS / Oxytocin 40 units/1000ml 1,000 ML IV SCH (04:00)
[2018-07-24] MEDS: Ibuprofen 800 MG TAB PO SCH ×3 (06:50→21:10)
[2018-07-24] MEDS: Ferrous Sulfate 325 MG TAB PO SCH ×2 (08:28→16:58)
[2018-07-24] MEDS: Prenatal Vitamin 1 TAB PO SCH (09:41)
[2018-07-24] MEDS: Docusate Calcium (SURFAK) 240 MG CAP PO SCH ×2 (09:41→21:10)
[2018-07-24] MEDS: Lactated Ringer's 1,000 ML IV SCH (16:58)
[2018-07-24] MEDS: NS w/ Oxytocin 10 units 500 ML IV SCH (22:30)
[2018-07-25 05:45] LABS: Hemoglobin 11.1 g/dL (12.0-16.0); Mean Corpuscular HGB CONC 34.4 g/dL (32.0-36.0); Mean Corpuscular Hemoglobin 30.4 pg (27.0-31.0); Mean Corpuscular Volume 88.4 fL (78.0-98.0); Mean Platelet Volume 10.7 fL (7.4-10.4); Platelet Count 108 thou/uL (130-400); RBC Distribution Width 12.4 % (11.5-14.5); Red Blood Cell (RBC) Count 3.66 mill/uL (4.20-5.40)
[2018-07-25] MEDS: Ibuprofen 800 MG TAB PO SCH ×3 (06:10→21:14)
[2018-07-25] MEDS: Lactated Ringer's 1,000 ML IV SCH ×3 (06:21→16:47)
[2018-07-25] MEDS: Docusate Calcium (SURFAK) 240 MG CAP PO SCH ×2 (09:13→21:14)
[2018-07-25] MEDS: Prenatal Vitamin 1 TAB PO SCH (09:13)
[2018-07-25] MEDS: Ferrous Sulfate 325 MG TAB PO SCH ×2 (09:20→16:47)
--- NOTE | 2018-07-25 17:41 | PDOC.PP ---
Post Progress Note Post Day #: 1 PO intake tolerated: yes Flatus: yes Ambulation: yes Vital Signs (12 hours) Temp Pulse Resp BP Pulse Ox 07/25/18 08:30 98 07/25/18 08:15 98.0 F 65 16 128/78 98 Weight Admit Weight 125 lb Weight 125 lb - Physical Examination General: NAD Cardiovascular: no m/r/g, RRR Respiratory: clear to auscultation bilaterally, non-labored breathing Abdominal: lochia, no distention Extremities: negative homans (B) Neurological: no gross focal deficits Psychiatric: A&Ox3, normal affect (DC to home) Result Diagrams: 07/25/18 04:59 Additional Labs: Post Labs Blood Type A POSITIVE 07/23/18 17:48 Hep Bs Antigen Non-Reactive S/CO (NonReactive) 07/23/18 17:49
[2018-07-26] MEDS: Ibuprofen 800 MG TAB PO SCH ×2 (05:16→13:37)
[2018-07-26] MEDS: Lactated Ringer's 1,000 ML IV SCH ×3 (06:26→16:29)
--- NOTE | 2018-07-26 07:04 | DN ---
DATE OF PROCEDURE: 07/24/2018 PREOPERATIVE DIAGNOSIS: Intrauterine at 35 weeks and 1 day with induction of labor after premature rupture of membranes at 30 weeks and 0 days. POSTOPERATIVE DIAGNOSIS: Intrauterine at 35 weeks and 1 day with induction of labor after premature rupture of membranes at 30 weeks and 0 days. PROCEDURES: Spontaneous vaginal delivery over intact perineum. FINDINGS: Viable female , weighing 2336 g or 5 pounds 2 ounces, Apgars of 9 and 9 with a loose nuchal cord x1 around the neck noted. QUANTITATIVE BLOOD LOSS: 27. DESCRIPTION OF PROCEDURE: Ms. Ibarra was admitted initially to the hospital at 30 weeks and 0 days with termination of premature rupture of membranes as per admitting diagnosis, that was on June 18, 2018. She then spent the next consecutive 5 weeks as an inpatient going through routine management of PPROM. She was finally scheduled for induction after 34 weeks at the 1st opportunity when NICU bed became available. This was accomplished with the group effort of continuous communication until the bed was found at 35 weeks and the patient was induced with Pitocin. She then went on to have an unremarkable spontaneous vaginal delivery with a healthy looking viable female infant. The patient presented to [facility] where she was admitted to the labor and delivery service. The patient underwent a normal and uneventful labor with normal cervical dilatation until she was found to be completely dilated. She was then allowed to push and was able to bring the baby down and delivered the baby in a vertex presentation without difficulties. Once the head delivered in occiput anterior position, the shoulders followed spontaneously along with the rest of the baby's body. Once out the baby's mouth and nose were bulb suctioned. The cord was clamped and cut and baby was handed to waiting attendants. Cord blood was collected. Gentle fundal massage was performed and the placenta delivered intact without problems. Hemostasis was assured. Quantitative blood loss was calculated. Inspection of the cervix, vaginal vault, and perineum did not reveal any lacerations needing suturing. Once again, hemostasis was within normal limits and the patient was allowed to recover in the labor and delivery room. Baby went to nursery. Job ID: [id number]
[2018-07-26 08:14] VITALS: BP 125/76; TEMP 97.9
[2018-07-26] MEDS: NS w/ Oxytocin 10 units 500 ML IV SCH ×2 (08:25→16:28)
[2018-07-26] MEDS: Ferrous Sulfate 325 MG TAB PO SCH ×2 (08:26→16:29)
[2018-07-26] MEDS: Docusate Calcium (SURFAK) 240 MG CAP PO SCH (10:39)
[2018-07-26] MEDS: Prenatal Vitamin 1 TAB PO SCH (10:39)
[2018-07-26] MEDS: Penicillin G 2.5 MILL.units 2.5 MILL.UNITS in Premix Bag 1 BAG IVPB SCH (11:01)
== END 2018-07-26 16:40 | disposition home or self-care (01) | DRG 807 ==
LOC: L&D/OP 10:21 → L&D 12:08 → EEVIPCON 12:08 → 3SW 06-20 18:28 → 3SE 07-02 17:00 → 3SW 07-07 18:14 → L&D 07-23 17:00 → 3SW 07-24 03:15
PROVIDERS: ADMIT Obstetrics & Gynecology; ATTEND Obstetrics & Gynecology
PROC: 3E033VJ Introduction of Other Hormone into Peripheral Vein, Percutaneous Approach (ICD-10-PCS; principal; 2018-07-24)
PROC: 10E0XZZ Delivery of Products of Conception, External Approach (ICD-10-PCS; 2018-07-24)
DX: O60.14X0 Preterm labor third trimester with preterm delivery third trimester, not applicable or unspecified (principal); Z37.0 Single live birth; Z3A.35 35 weeks gestation of pregnancy; O42.113 Preterm premature rupture of membranes, onset of labor more than 24 hours following rupture, third trimester
CPT/HCPCS: 36415; 51702; 59025; 76805; 76819; 84112; 85027; 86780; 86850; 86900; 86901; 87081; 87340; 87480; 87491; 87510; 87591; 87660; 88307; 90715; 99285; J0290; J0456; J0702; J2001; J2405; J2540; J2590; J3490; J7050